=== PATIENT | female | born 1950 | race Caucasian/White ===

== ENCOUNTER 2021-02-10 14:52 | Observation (INO) | payer MEDICARE ==
--- NOTE | 2021-02-10 15:08 | ED ---
General Adult HPI - General Chief complaint: Extremity Injury, Upper Stated complaint: dislocated shoulder Time Seen by Provider: 02/10/21 14:54 Source: patient, family, EMS Mode of arrival: EMS Limitations: no limitations - History of Present Illness Initial comments: Dictation was produced using [employer] dictation software. please excuse any gramma tical, word or spelling errors. This patient was cared for during a federal and state declared state of emergency secondary to Covid 19 Chief Complaint: 70-year-old female with past medical history of COPD, A. fib presents to emergency by for right shoulder dislocation History of Present Illness: 70-year-old female she presents today with right shoulder dislocation. Patient has been having on and off right shoulder pain for the last 10 days. She was evaluated at [facility] where she was diagnosed with right shoulder dislocation. Multiple attempts were made to reduce the right shoulder without any success. Patient has no orthopedic history. He has never seen an orthopedic surgeon past. The ROS documented in this emergency department record has been reviewed and c onfirmed by me. Those systems with pertinent positive or negative responses have been documented in the HPI. All other systems are other negative and/or noncontributory. PHYSICAL EXAM: General Impression: Alert and oriented x3, not in acute distress HEENT: Normocephalic atraumatic, extra-ocular movements intact, pupils equal and reactive to light bilaterally, mucous membranes moist. Cardiovascular: Heart regular rate and rhythm Chest: Able to complete full sentences, no retractions, no tachypnea Right shoulder: Obvious swelling and deformity placed in a sling Abdomen: abdomen soft, non-tender, non-distended, no organomegaly Musculoskeletal: Pulses present and equal in all extremities, no peripheral edema Motor: no focal deficits noted Neurological: CN II-XII grossly intact, no focal motor or sensory deficits noted Skin: Intact with no visualized rashes Psych: Normal affect and mood ED course: 70-year-old female with past medical history of A. fib since the emergency department for shoulder dislocation of the right shoulder. There is concern that patient's shoulders been dislocated for approximately 10 days. Vital signs upon arrival are within acceptable limits. Case is discussed with orthopedic surgery Paula Browning. Given that patient's shoulder has been dislocated for greater than 24 hours and multiple times or any failed at previous emergency department will not become attempt. Orthopedic surgeries willing to admit the patient take patient to the operating room for shoulder reduction tomorrow. - Related Data Allergies Allergy/AdvReac Type Severity Reaction Status Date / Time azithromycin [From Zithromax] Allergy Anaphylaxis Verified 02/10/21 15:06 codeine Allergy Hallucinati Verified 02/10/21 15:06 ons hydromorphone [From Dilaudid] Allergy Confusion Verified 02/10/21 15:06 Review of Systems ROS Statement: Those systems with pertinent positive or pertinent negative responses have been documented in the HPI. ROS Other: All systems not noted in ROS Statement are negative. Past Medical History Past Medical History: Atrial Fibrillation, Asthma, Coronary Artery Disease (CAD), Chest Pain / Angina, COPD, CVA/TIA, Hypertension, Osteoarthritis (OA), Thyroid Disorder Additional Past Medical History / Comment(s): Triple AAA, Diverticulitis History of Any Multi-Drug Resistant Organisms: None Reported Past Surgical History: Heart Catheterization With Stent, Pacemaker Past Psychological History: Anxiety Smoking Status: Former smoker Past Alcohol Use History: None Reported Past Drug Use History: None Reported General Exam Limitations: no limitations Course Vital Signs 02/10/21 14:54 Temperature 97.8 F Pulse Rate 75 Respiratory 18 Rate Blood Pressure 169/85 O2 Sat by Pulse 95 Oximetry Disposition Clinical Impression: Shoulder dislocation Disposition: ADMITTED IP TO THIS HOSP Condition: Fair Referrals: Dejan Carmichael DO [Primary Care Provider] - 1-2 days Decision Time: 16:28
[2021-02-10] MEDS ORDERED: MORPHINE SULFATE 4 MG/ML SYRINGE IV PRN (16:24)
[2021-02-10] MEDS ORDERED: NALOXONE 0.4 MG/ML 1 ML VIAL IV PRN (16:24)
[2021-02-10] MEDS ORDERED: ONDANSETRON 4 MG/2 ML VIAL IVP PRN (16:24)
[2021-02-10] MEDS ORDERED: SODIUM CHLORIDE 0.9% 1,000 ML IV SCH (16:30)
[2021-02-10] MEDS: ACETAMINOPHEN TAB 325 MG TAB PO PRN ×2 (16:42→23:12)
[2021-02-10] MEDS ORDERED: DOCUSATE 100 MG CAP PO PRN (22:52)
[2021-02-10] MEDS ORDERED: FUROSEMIDE 20 MG TAB PO PRN (22:52)
[2021-02-10] MEDS ORDERED: DILTIAZEM CD 180 MG CAP.ER.24H PO SCH (23:00)
[2021-02-10] MEDS: FLECAINIDE 50 MG TAB PO SCH (23:09)
[2021-02-11] MEDS ORDERED: POTASSIUM CHLORIDE ER 20 MEQ TAB.ER PO STA (02:59)
--- NOTE | 2021-02-11 03:01 | P.CONS ---
History of Present Illness - Reason for Consult Consult date: 02/10/21 - History of Present Illness The patient is 70-year-old female with a PMH of A. vielka on Eliquis, coronary artery disease status post 2 stents, status post PPM, systolic CHF, hypertension, hypothyroidism, and hyperlipidemia who was transferred from [facility] for right shoulder dislocation. The patient reports that her shoulder started hurting roughly 10 days ago when she woke up from her sleep. She denied any trauma to the area or any other inciting event. The pain gradually worsened at which time she decided to seek medical care earlier today at [facility]. As per the documentation, multiple attempts were made to reduce the shoulder without success. The patient was subsequently transferred to [facility] emergency room for admission and orthopedic surgery evaluation. Sound physicians were consulted for medical management. At time of interview, the patient reported no pain at rest, but significant pain with movement of the right shoulder joint. She denied numbness, tingling, or w eakness anywhere including RUE. Reports that her exercise tolerance is less than 1 flight of stairs. Denied orthopnea or PND. Denied exertional chest discomfort or palpitations. Denied nausea, vomiting, abdominal pain, diarrhea, fever, chills, cough. Denied hematochezia, melena, or bleeding elsewhere. She underwent an extensive evaluation at [facility] with right shoulder x-ray showing an anterior dislocation of the humeral head with follow-up x-ray showing residual anterior dislocation. EKG revealed an atrial paced rhythm at 60 bpm. Laboratory evaluation revealed a WBC count of 17.8, Hgb 13.5, platelets 414, sodium 126, potassium 3.2, chloride 86, CO2 31, BUN 17, creatinine 0.7, AST 19, ALT 17, total bilirubin 0.9, and calcium 8.6. Review of Systems Pertinent positives and negatives as discussed in HPI, a complete review of systems was performed and all other systems are negative. Past Medical History Past Medical History: Atrial Fibrillation, Asthma, Coronary Artery Disease (CAD), Chest Pain / Angina, COPD, CVA/TIA, Hypertension, Osteoarthritis (OA), Thyroid Disorder Additional Past Medical History / Comment(s): Triple AAA, Diverticulitis History of Any Multi-Drug Resistant Organisms: None Reported Past Surgical History: Heart Catheterization With Stent, Pacemaker Date of Last Stent Placement:: 2005 Type of Cardiac Device: Unknown Device Placement Date:: 2018 Past Psychological History: Anxiety Smoking Status: Former smoker Past Alcohol Use History: None Reported Past Drug Use History: None Reported Medications and Allergies Home Medications Medication Instructions Recorded Confirmed Type Albuterol Inhaler [Ventolin Hfa 2 puff INHALATION RT-DAILY 02/10/21 02/10/21 History Inhaler] Apixaban [Eliquis] 5 mg PO BID 02/10/21 02/10/21 History Bumetanide [BUMEX] 1 mg PO DAILY 02/10/21 02/10/21 History Diltiazem HCl [Diltiazem HCl 24Hr 360 mg PO HS 02/10/21 02/10/21 History ER] Docusate Sodium [Dok] 100 mg PO Q12HR PRN 02/10/21 02/10/21 History Flecainide [Tambocor] 100 mg PO BID 02/10/21 02/10/21 History Furosemide [Lasix] 20 mg PO DAILY PRN 02/10/21 02/10/21 History Levothyroxine Sodium [Synthroid] 75 mcg PO DAILY 02/10/21 02/10/21 History Loratadine [Claritin] 10 mg PO DAILY 02/10/21 02/10/21 History Losartan Potassium [Cozaar] 100 mg PO DAILY 02/10/21 02/10/21 History Magnesium Oxide [Mag-Ox] 400 mg PO BID 02/10/21 02/10/21 History Metoprolol Tartrate [Lopressor] 100 mg PO BID 02/10/21 02/10/21 History Pantoprazole Sodium [Protonix] 40 mg PO DAILY 02/10/21 02/10/21 History Potassium Chloride ER [K-Dur 10] 10 meq PO DAILY 02/10/21 02/10/21 History Pravastatin Sodium [Pravachol] 40 mg PO DAILY 02/10/21 02/10/21 History Allergies Allergy/AdvReac Type Severity Reaction Status Date / Time azithromycin [From Zithromax] Allergy Anaphylaxis Verified 02/10/21 17:34 codeine Allergy Hallucinati Verified 02/10/21 17:34 ons hydromorphone [From Dilaudid] Allergy Confusion Verified 02/10/21 17:34 steroid AdvReac Unknown Uncoded 02/10/21 17:34 Physical Exam Vitals: Vital Signs Temp Pulse Pulse Resp BP BP Pulse Ox 02/10/21 18:33 98.1 F 62 18 114/55 90 L 02/10/21 18:07 97.6 F 62 18 115/64 93 L 02/10/21 17:54 97.6 F 62 18 115/64 93 L 02/10/21 16:44 70 18 145/72 95 02/10/21 14:54 97.8 F 75 18 169/85 95 Intake and Output 02/10/21 02/10/21 02/10/21 06:59 14:59 22:59 Other: Voiding Method Toilet Weight 85.729 kg 85.729 kg General: non toxic, no distress, appears at stated age, obese Derm: no unusual rashes/lesions no unusual ecchymoses, warm, dry Head: atraumatic, normocephalic, symmetric Eyes: EOMI, no lid lag, anicteric sclera, pupils equal round reactive to light ENT: Nose and ears atraumatic, no thrush, no pharyngeal erythema Neck: No thyromegaly, no cervical lymphadenopathy, trachea midline, supple Mouth: no lip lesion, mucus membranes moist Cardiovascular: S1S2 reg, no murmur, positive posterior tibial pulse bilateral, no edema, capillary refill less than 2 seconds, RUE radial pulse palpable Lungs: CTA bilateral, no rhonchi, no rales , no accessory muscle use Abdominal: soft, nontender to palpation, no guarding, no appreciable organomegaly, normal bowel sounds Ext: no gross muscle atrophy, R arm sling, pain elicited w/ movement of R shoulder joint, muscle strength 5 out of 5 in all extremities except RUE due to pain, R distal strength 5/5 including electromatic typist, no contractures Neuro: CN II-XI grossly intact, light touch intact all 4 extremities, finger to nose within normal limits, Psych: Alert, oriented, appropriate affect Assessment and Plan Plan: Pre-op evaluation -Will obtain Cardiology consult for risk stratification in light of patient's poor exercise tolerance and significant cardiac history R shoulder dislocation -Defer management to orthopedic surgery service Hypokalemia -Replace and monitor Hyponatremia -Monitor for now -May be due to acute stressor and pain Chronic conditions: Afib, HTN, hypothyroidism -C/w home meds
[2021-02-11] MEDS: ACETAMINOPHEN TAB 325 MG TAB PO PRN (04:43)
[2021-02-11] MEDS ORDERED: LEVOTHYROXINE 75 MCG TAB PO SCH (06:30)
[2021-02-11] MEDS ORDERED: ALBUTEROL NEBULIZED 2.5 MG/3 ML INHALATION SCH (08:00)
[2021-02-11] MEDS: FLECAINIDE 50 MG TAB PO SCH (08:14)
--- NOTE | 2021-02-11 08:59 | ECHOF ---
Referral Reason:LV function, pre-op clearance MEASUREMENTS -------- HEIGHT: 154.9 cm WEIGHT: 85.7 kg BP: RVIDd: 2.9 cm (< 3.3) IVSd: 1.3 cm (0.6 - 1.1) LVIDd: 3.9 cm (3.9 - 5.3) LVPWd: 1.4 cm (0.6 - 1.1) IVSs: 1.8 cm LVIDs: 2.0 cm LVPWs: 2.1 cm LAESV Index (A-L): 33.05 ml/m Ao Diam: 3.5 cm (2.0 - 3.7) AV Cusp: 1.8 cm (1.5 - 2.6) LA Diam: 3.9 cm (2.7 - 3.8) MV EXCURSION: 21.333 mm (> 18.000) MV EF SLOPE: 140 mm/s (70 - 150) EPSS: 0.6 cm MV E Félix: 1.10 m/s MV DecT: 249 ms MV A Félix: 1.12 m/s MV E/A Ratio: 0.99 AV maxP.02 mmHg AV meanP.77 mmHg RAP: 15.00 mmHg RVSP: 50.63 mmHg FINDINGS -------- Paced rhythm. This was a technically good study. The left ventricular size is normal. There is mild concentric left ventricular hypertrophy. Overa ll left ventricular systolic function is normal with, an EF between 55 - 60 %. Left ventricular claudy limg pressure cannot be estimated due to paced rhythm. The right ventricle is normal in size. LA is midly dilated 29-33ml/m2. The right atrial size is normal. Aortic valve is trileaflet and is mildly thickened. There is mild aortic stenosis present. Peak/m alice gradient across the Aortic Valve is 22.02mmHg / 11.77mmHg. The mitral valve is normal. Mild mitral regurgitation is present. The tricuspid valve appears structurally normal. Mild tricuspid regurgitation present. There is m oderate pulmonary hypertension. The right ventricular systolic pressure, as measured by Doppler, is 50.63mmHg. There is no pulmonic regurgitation present. The aortic root size is normal. The inferior vena cava is mildly dilated. There is no pericardial effusion. CONCLUSIONS -------- 1. Paced rhythm. 2. The left ventricular size is normal. 3. There is mild concentric left ventricular hypertrophy. 4. Overall left ventricular systolic function is normal with, an EF between 55 - 60 %. 5. Left ventricular fillimg pressure cannot be estimated due to paced rhythm. 6. LA is midly dilated 29-33ml/m2. 7. Aortic valve is trileaflet and is mildly thickened. 8. There is mild aortic stenosis present. 9. Peak/mean gradient across the Aortic Valve is 22.02mmHg / 11.77mmHg. 10. Mild mitral regurgitation is present. 11. Mild tricuspid regurgitation present. 12. There is moderate pulmonary hypertension. 13. The right ventricular systolic pressure, as measured by Doppler, is 50.63mmHg. 14. The inferior vena cava is mildly dilated. 15. There is no pericardial effusion. PLUNKET NURSE: Paula Figueroa RDCS
[2021-02-11] MEDS ORDERED: PANTOPRAZOLE 40 MG TABLET PO SCH (09:00)
[2021-02-11] MEDS ORDERED: LOSARTAN 50 MG TAB PO SCH (09:00)
[2021-02-11] MEDS ORDERED: APIXABAN 5 MG TAB PO SCH (09:00)
[2021-02-11] MEDS ORDERED: MAGNESIUM OXIDE 400 MG TAB PO SCH (09:00)
[2021-02-11] MEDS ORDERED: PRAVASTATIN SODIUM 40 MG TAB PO SCH (09:00)
[2021-02-11] MEDS ORDERED: BUMETANIDE 1 MG TAB PO SCH (09:00)
[2021-02-11] MEDS ORDERED: METOPROLOL TARTRATE 50 MG TAB PO SCH (09:00)
[2021-02-11 10:04] LABS: African American GFR (CKD) 85.4 (60.0-200.0); Anion Gap 11.1 mmol/L (4.00-12.00); BUN/Creat Ratio 23.75 Ratio (12.00-20.00); Calcium 8.4 mg/dL (8.7-10.3); Carbon Dioxide 27.9 mmol/L (21.6-31.8); Non-African American GFR(CKD) 73.7 (60.0-200.0); Potassium 3.9 mmol/L (3.5-5.5)
--- NOTE | 2021-02-11 11:23 | P.CRDCN ---
History of Present Illness Consult date: 02/11/21 History of present illness: HISTORY OF PRESENT ILLNESS: This is a 70-year-old female with a past medical history significant for paroxysmal atrial fibrillation, coronary artery disease with previous stent placement 2 (1999 and 2005 per patient), COPD, CVA/TIA, hypertension, osteoarthritis, and previous pacemaker insertion. Patient follows with a Dr. Katelynn Browning in [place], [place]. We have been asked to see the patient in consultation for preop evaluation. Patient was transferred from [facility] yesterday secondary to right shoulder dislocation. Patient examined at the bedside. Patient denies chest pain or pressure. She denies shortness of breath. She reports having a stress test done in [place] within the past year or two. Patient is on 2 L nasal cannula with oxygen saturations greater than 92%. Heart rate is in the 70s. Blood pressure 166/72. She is afebrile. EKG reveals paced rhythm with no signs of acute ischemia Laboratory data: Sodium 133. Potassium 3.9. BUN 18. Creatinine 0.8. Current home cardiac medications include metoprolol tartrate 100 mg twice a day, diltiazem 360 mg at night, Bumex 1 mg daily, pravastatin 40 mg daily, Cozaar 100 mg daily, Lasix 20 mg daily as needed, flecainide 100 mg twice a day, and Eliquis 5 mg twice a day Echocardiogram completed reveals ejection fraction 55-60%, mild aortic stenosis, mild mitral regurgitation, mild tricuspid regurgitation, and moderate pulmonary hypertension REVIEW OF SYSTEMS: At the time of my exam: CONSTITUTIONAL: Denies fever or chills. HEENT: Denies blurred vision, vision changes, or eye pain. Denies hemoptysis CARDIOVASCULAR: Denies chest pain. Denies orthopnea. Denies PND. Denies palpitations RESPIRATORY: Denies shortness of breath. GASTROINTESTINAL: Denies abdominal pain. Denies nausea or vomiting. HEMATOLOGIC: Denies bleeding disorders. GENITOURINARY: Denies any blood in urine. SKIN: Denies pruitis. Denies rash. PHYSICAL EXAM: VITAL SIGNS: Reviewed. GENERAL: Well-developed in no acute distress. HEENT: Head is normocephalic. Pupils are equal, round. Sclerae anicteric. Mucous membranes of the mouth are moist. Neck supple. No JVD or thyromegaly LUNGS: Respirations even and unlabored. Lungs essentially clear to auscultation bilaterally. HEART: Regular rate and rhythm. S1 and S2 heard. ABDOMEN: Soft. Nondistended. Nontender. EXTREMITIES: No clubbing or cyanosis. Peripheral pulses intact. No lower extremity edema. Right arm in sling. NEUROLOGIC: Awake and alert. Oriented x 3. ASSESSMENT: Right shoulder dislocation Paroxysmal atrial fibrillation, on anticoagulation with Eliquis Coronary artery disease with previous stent 2 History of pacemaker insertion COPD Hypertension Hyperlipidemia CVA/TIA Anxiety Former nicotine dependence PLAN: Patient scheduled for closed reduction of right shoulder today with Dr. Holm. Patient has no symptoms of congestive heart failure and no complaints of angina. There are no absolute contraindications to proceed with surgery from a cardiac standpoint Continue home cardiac medications Resume Eliquis when okay with orthopedics Obtain reports from [facility] where patient believes she had her last stress test performed Further recommendations pending patient course Nurse practitioner note has been reviewed by physician. Signing provider agrees with the documented findings, assessment, and plan of care. Past Medical History Past Medical History: Atrial Fibrillation, Asthma, Coronary Artery Disease (CA D), Chest Pain / Angina, COPD, CVA/TIA, Hypertension, Osteoarthritis (OA), Thyroid Disorder Additional Past Medical History / Comment(s): Triple AAA, Diverticulitis History of Any Multi-Drug Resistant Organisms: None Reported Past Surgical History: Heart Catheterization With Stent, Pacemaker Date of Last Stent Placement:: 2005 Type of Cardiac Device: Unknown Device Placement Date:: 2018 Past Psychological History: Anxiety Smoking Status: Former smoker Past Alcohol Use History: None Reported Past Drug Use History: None Reported Medications and Allergies Home Medications Medication Instructions Recorded Confirmed Type Albuterol Inhaler [Ventolin Hfa 2 puff INHALATION RT-DAILY 02/10/21 02/10/21 History Inhaler] Apixaban [Eliquis] 5 mg PO BID 02/10/21 02/10/21 History Bumetanide [BUMEX] 1 mg PO DAILY 02/10/21 02/10/21 History Diltiazem HCl [Diltiazem HCl 24Hr 360 mg PO HS 02/10/21 02/10/21 History ER] Docusate Sodium [Dok] 100 mg PO Q12HR PRN 02/10/21 02/10/21 History Flecainide [Tambocor] 100 mg PO BID 02/10/21 02/10/21 History Furosemide [Lasix] 20 mg PO DAILY PRN 02/10/21 02/10/21 History Levothyroxine Sodium [Synthroid] 75 mcg PO DAILY 02/10/21 02/10/21 History Loratadine [Claritin] 10 mg PO DAILY 02/10/21 02/10/21 History Losartan Potassium [Cozaar] 100 mg PO DAILY 02/10/21 02/10/21 History Magnesium Oxide [Mag-Ox] 400 mg PO BID 02/10/21 02/10/21 History Metoprolol Tartrate [Lopressor] 100 mg PO BID 02/10/21 02/10/21 History Pantoprazole Sodium [Protonix] 40 mg PO DAILY 02/10/21 02/10/21 History Potassium Chloride ER [K-Dur 10] 10 meq PO DAILY 02/10/21 02/10/21 History Pravastatin Sodium [Pravachol] 40 mg PO DAILY 02/10/21 02/10/21 History Allergies Allergy/AdvReac Type Severity Reaction Status Date / Time azithromycin [From Zithromax] Allergy Anaphylaxis Verified 02/10/21 17:34 codeine Allergy Hallucinati Verified 02/10/21 17:34 ons hydromorphone [From Dilaudid] Allergy Confusion Verified 02/10/21 17:34 steroid AdvReac Unknown Uncoded 02/10/21 17:34 Physical Exam Vitals: Vital Signs Temp Pulse Pulse Resp BP BP Pulse Ox 02/11/21 07:53 76 02/11/21 07:38 72 02/11/21 07:20 98.4 F 62 16 166/72 93 L 02/11/21 00:57 97.9 F 58 L 20 132/74 93 L 02/10/21 19:12 98.1 F 61 22 128/72 90 L 02/10/21 18:33 98.1 F 62 18 114/55 90 L 02/10/21 18:07 97.6 F 62 18 115/64 93 L 02/10/21 17:54 97.6 F 62 18 115/64 93 L 02/10/21 16:44 70 18 145/72 95 02/10/21 14:54 97.8 F 75 18 169/85 95 Intake and Output 02/10/21 02/11/21 02/11/21 22:59 06:59 14:59 Other: Voiding Method Toilet Toilet Toilet # Voids 2 2 Weight 85.729 kg Results 02/11/21 05:15 Comprehensive Metabolic Panel 02/11/21 Range/Units 05:15 Sodium 133 L (135-145) mmol/L Potassium 3.9 (3.5-5.5) mmol/L Chloride 94 L (96-109) mmol/L Carbon Dioxide 27.9 (21.6-31.8) mmol/L BUN 19.0 (9.0-27.0) mg/dL Creatinine 0.8 (0.6-1.5) mg/dL Glucose 90 (70-110) mg/dL Calcium 8.4 L (8.7-10.3) mg/dL Current Medications Generic Name Dose Route Start Last Admin Trade Name Freq PRN Reason Stop Dose Admin Acetaminophen 650 mg 02/10/21 16:24 02/11/21 04:43 Acetaminophen Tab 325 Mg Tab PO 650 mg Q6HR PRN Administration Mild Pain or Fever > 100.5 Albuterol Sulfate 2.5 mg 02/11/21 08:00 02/11/21 07:38 Albuterol Nebulized 2.5 Mg/3 Ml INHALATION 2.5 mg RT-DAILY ROSANNE Administration Apixaban 5 mg 02/11/21 09:00 Apixaban 5 Mg Tab PO BID ROSANNE Diltiazem HCl 360 mg 02/10/21 23:00 02/10/21 23:09 Diltiazem Cd 180 Mg Cap.Er.24h PO 360 mg HS ROSANNE Administration Docusate Sodium 100 mg 02/10/21 22:52 Docusate 100 Mg Cap PO Q12HR PRN Constipation Flecainide Acetate 100 mg 02/10/21 23:00 02/11/21 08:14 Flecainide 50 Mg Tab PO 100 mg BID ROSANNE Administration Furosemide 20 mg 02/10/21 22:52 Furosemide 20 Mg Tab PO DAILY PRN Edema Sodium Chloride 1,000 mls @ 20 mls/hr 02/10/21 16:30 02/11/21 00:10 Saline 0.9% IV 20 mls/hr .Q24H ROSANNE Administration Levothyroxine Sodium 75 mcg 02/11/21 06:30 02/11/21 05:49 Levothyroxine 75 Mcg Tab PO 75 mcg DAILY@0630 ROSANNE Administration Losartan Potassium 100 mg 02/11/21 09:00 02/11/21 08:14 Losartan 50 Mg Tab PO 100 mg DAILY ROSANNE Administration Magnesium Oxide 400 mg 02/11/21 09:00 02/11/21 08:15 Magnesium Oxide 400 Mg Tab PO 400 mg BID ROSANNE Administration Metoprolol Tartrate 100 mg 02/11/21 09:00 02/11/21 08:15 Metoprolol Tartrate 50 Mg Tab PO 100 mg BID ROSANNE Administration Morphine Sulfate 4 mg 02/10/21 16:24 Morphine Sulfate 4 Mg/Ml Syringe IV Q4HR PRN Severe Pain Naloxone HCl 0.2 mg 02/10/21 16:24 Naloxone 0.4 Mg/Ml 1 Ml Vial IV Q2M PRN Opioid Reversal Ondansetron HCl 4 mg 02/10/21 16:24 Ondansetron 4 Mg/2 Ml Vial IVP Q8HR PRN Nausea And Vomiting Pantoprazole Sodium 40 mg 02/11/21 09:00 02/11/21 08:14 Pantoprazole 40 Mg Tablet PO 40 mg DAILY ROSANNE Administration Pravastatin Sodium 40 mg 02/11/21 09:00 02/11/21 08:15 Pravastatin Sodium 40 Mg Tab PO 40 mg DAILY ROSANNE Administration Intake and Output 02/10/21 02/11/21 02/11/21 22:59 06:59 14:59 Other: Voiding Method Toilet Toilet Toilet # Voids 2 2 Weight 85.729 kg 02/11/21 05:15
--- NOTE | 2021-02-11 11:28 | P.HPOR ---
History of Present Illness H&P Date: 02/11/21 This is a 70-year-old female who is admitted for right shoulder dislocation. Patient is seen and evaluated at bedside today with Dr. Matthew Holm. Patient states that about 10 days ago she woke up with right shoulder pain. Patient states that since then she has had several episodes of shoulder pain and locking of the right shoulder. Patient states that 2 or 3 days ago she noticed swelling over the right shoulder. Patient denies any injury or previous issues with the right shoulder. Patient states that she went to [facility] emergency room where closed reduction was attempted, but was not successful. Patient was then transferred to [facility] and admitted for further management. Patient states that her pain is well controlled today. Patient denies any fever/chills, numbness, weakness, tingling, abdominal pain, shortness of breath or chest pain. Patient's past medical history significant for atrial fibrillation, asthma, coronary artery disease, pacemaker, chest pain, COPD, CVA/TIA, hypertension, osteoarthritis and thyroid disorder. Review of Systems See HPI. Past Medical History Past Medical History: Atrial Fibrillation, Asthma, Coronary Artery Disease (CAD), Chest Pain / Angina, COPD, CVA/TIA, Hypertension, Osteoarthritis (OA), Thyroid Disorder Additional Past Medical History / Comment(s): Triple AAA, Diverticulitis History of Any Multi-Drug Resistant Organisms: None Reported Past Surgical History: Heart Catheterization With Stent, Pacemaker Date of Last Stent Placement:: 2005 Type of Cardiac Device: Unknown Device Placement Date:: 2018 Past Psychological History: Anxiety Smoking Status: Former smoker Past Alcohol Use History: None Reported Past Drug Use History: None Reported Medications and Allergies Home Medications Medication Instructions Recorded Confirmed Type Albuterol Inhaler [Ventolin Hfa 2 puff INHALATION RT-DAILY 02/10/21 02/10/21 History Inhaler] Apixaban [Eliquis] 5 mg PO BID 02/10/21 02/10/21 History Bumetanide [BUMEX] 1 mg PO DAILY 02/10/21 02/10/21 History Diltiazem HCl [Diltiazem HCl 24Hr 360 mg PO HS 02/10/21 02/10/21 History ER] Docusate Sodium [Dok] 100 mg PO Q12HR PRN 02/10/21 02/10/21 History Flecainide [Tambocor] 100 mg PO BID 02/10/21 02/10/21 History Furosemide [Lasix] 20 mg PO DAILY PRN 02/10/21 02/10/21 History Levothyroxine Sodium [Synthroid] 75 mcg PO DAILY 02/10/21 02/10/21 History Loratadine [Claritin] 10 mg PO DAILY 02/10/21 02/10/21 History Losartan Potassium [Cozaar] 100 mg PO DAILY 02/10/21 02/10/21 History Magnesium Oxide [Mag-Ox] 400 mg PO BID 02/10/21 02/10/21 History Metoprolol Tartrate [Lopressor] 100 mg PO BID 02/10/21 02/10/21 History Pantoprazole Sodium [Protonix] 40 mg PO DAILY 02/10/21 02/10/21 History Potassium Chloride ER [K-Dur 10] 10 meq PO DAILY 02/10/21 02/10/21 History Pravastatin Sodium [Pravachol] 40 mg PO DAILY 02/10/21 02/10/21 History Allergies Allergy/AdvReac Type Severity Reaction Status Date / Time azithromycin [From Zithromax] Allergy Anaphylaxis Verified 02/10/21 17:34 codeine Allergy Hallucinati Verified 02/10/21 17:34 ons hydromorphone [From Dilaudid] Allergy Confusion Verified 02/10/21 17:34 steroid AdvReac Unknown Uncoded 02/10/21 17:34 Physical Examination On exam patient is resting comfortably in bed in no acute distress. Patient is alert and oriented 3. There is swelling over the right shoulder. There is no erythema or ecchymosis. Patient has limited passive and active range of motion of the right upper extremity. Sensation intact. The right upper extremity is warm and well perfused. Neurovascular status and circulatory status are intact. Results Outside x-rays of the right shoulder show anterior dislocation of the right shoulder. - Labs Labs: Abnormal Lab Results - Last 24 Hours (Table) 02/11/21 Range/Units 05:15 Sodium 133 L (135-145) mmol/L Chloride 94 L (96-109) mmol/L BUN/Creatinine Ratio 23.75 H (12.00-20.00) Ratio Calcium 8.4 L (8.7-10.3) mg/dL Result Diagrams: 02/11/21 05:15 Assessment and Plan (1) Dislocation of right shoulder joint Current Visit: Yes Status: Acute Code(s): S43.004A - UNSPECIFIED DISLOCATION OF RIGHT SHOULDER JOINT, INIT ENCNTR SNOMED Code(s): 972466773 (2) Shoulder dislocation Current Visit: Yes Status: Acute Code(s): S43.006A - UNSP DISLOCATION OF UNSPECIFIED SHOULDER JOINT, INIT ENCNTR SNOMED Code(s): 726314912 Plan: 1. Patient is NPO. 2. Continue pain control. 3. Planning for closed reduction of the right shoulder later today with Dr. Matthew Holm pending patient consent. Planning to discharge the patient home today after procedure. Patient is receptive to this plan.
[2021-02-11] MEDS ORDERED: LACTATED RINGERS 1,000 ML IV ONE (12:16)
[2021-02-11] MEDS ORDERED: ONDANSETRON 4 MG/2 ML VIAL IVP ONE (12:22)
--- NOTE | 2021-02-11 13:39 | P.DS ---
Providers Date of admission: 02/10/21 17:19 Expected date of discharge: 02/11/21 Attending physician: Matthew Holm Consults: 02/10/21 16:45 Consult Physician Routine Consulting Provider: Neha Colon Consult Reason/Comments: medical management Do you want consulting provider notified?: Yes 02/11/21 03:00 Consult Physician Urgent Consulting Provider: Tyler Magdaleno Consult Reason/Comments: Pre-op eval Do you want consulting provider notified?: Yes Primary care physician: Dejan Carmichael - Discharge Diagnosis(es) (1) Dislocation of right shoulder joint Current Visit: Yes Status: Acute (2) Shoulder dislocation Current Visit: Yes Status: Acute Hospital Course: This is a 70-year-old female who was transferred from [facility] emergency room for management of anterior right shoulder dislocation. After discussion and co nsideration patient consents to proceed with closed reduction of the right shoulder. Patient is admitted on 02/10/2021 and closed reduction of the right shoulder is performed on 02/11/2021 in the operating room by Dr. Matthew Holm. Labs and vital signs are stable on day of discharge. Patient is in good condition for discharge home. Patient Condition at Discharge: Fair Plan - Discharge Summary New Discharge Prescriptions: New HYDROcodone/APAP 7.5-325MG [[place] 7.5-325] 1 - 2 tab PO Q6H PRN #32 tab PRN Reason: Pain Sennosides [Senokot] 2 tab PO DAILY PRN #60 tablet PRN Reason: Constipation No Action Potassium Chloride ER [K-Dur 10] 10 meq PO DAILY Pantoprazole Sodium [Protonix] 40 mg PO DAILY Magnesium Oxide [Mag-Ox] 400 mg PO BID Losartan Potassium [Cozaar] 100 mg PO DAILY Bumetanide [BUMEX] 1 mg PO DAILY Levothyroxine Sodium [Synthroid] 75 mcg PO DAILY Furosemide [Lasix] 20 mg PO DAILY PRN PRN Reason: Edema Flecainide [Tambocor] 100 mg PO BID Apixaban [Eliquis] 5 mg PO BID Diltiazem HCl [Diltiazem HCl 24Hr ER] 360 mg PO HS Albuterol Inhaler [Ventolin Hfa Inhaler] 2 puff INHALATION RT-DAILY Pravastatin Sodium [Pravachol] 40 mg PO DAILY Metoprolol Tartrate [Lopressor] 100 mg PO BID Docusate Sodium [Dok] 100 mg PO Q12HR PRN PRN Reason: Constipation Loratadine [Claritin] 10 mg PO DAILY Discharge Medication List Albuterol Inhaler [Ventolin Hfa Inhaler] 2 puff INHALATION RT-DAILY 02/10/21 [History] Apixaban [Eliquis] 5 mg PO BID 02/10/21 [History] Bumetanide [BUMEX] 1 mg PO DAILY 02/10/21 [History] Diltiazem HCl [Diltiazem HCl 24Hr ER] 360 mg PO HS 02/10/21 [History] Docusate Sodium [Dok] 100 mg PO Q12HR PRN 02/10/21 [History] Flecainide [Tambocor] 100 mg PO BID 02/10/21 [History] Furosemide [Lasix] 20 mg PO DAILY PRN 02/10/21 [History] Levothyroxine Sodium [Synthroid] 75 mcg PO DAILY 02/10/21 [History] Loratadine [Claritin] 10 mg PO DAILY 02/10/21 [History] Losartan Potassium [Cozaar] 100 mg PO DAILY 02/10/21 [History] Magnesium Oxide [Mag-Ox] 400 mg PO BID 02/10/21 [History] Metoprolol Tartrate [Lopressor] 100 mg PO BID 02/10/21 [History] Pantoprazole Sodium [Protonix] 40 mg PO DAILY 02/10/21 [History] Potassium Chloride ER [K-Dur 10] 10 meq PO DAILY 02/10/21 [History] Pravastatin Sodium [Pravachol] 40 mg PO DAILY 02/10/21 [History] HYDROcodone/APAP 7.5-325MG [[place] 7.5-325] 1 - 2 tab PO Q6H PRN #32 tab 02/11/21 [Rx] Sennosides [Senokot] 2 tab PO DAILY PRN #60 tablet 02/11/21 [Rx] Follow up Appointment(s)/Referral(s): Dejan Carmichael DO [Primary Care Provider] - 1-2 days Matthew Holm DO [Doctor of Osteopathic Medicine] - 1 Week Activity/Diet/Wound Care/Special Instructions: Maintain sling to right upper extremity. Please take medications as prescribed. Rest and ice the right shoulder. Nonweightbearing to the right upper extremity. Please follow-up with [facility] and call with any questions or concerns, . Discharge Disposition: HOME SELF-CARE
[2021-02-11] MEDS ORDERED: HYDROmorphone 0.5 MG/0.5 ML SYRINGE IVP PRN ×2 (13:41)
[2021-02-11] MEDS ORDERED: HYDROmorphone 0.2 MG/1 ML SYRINGE IVP PRN (13:41)
[2021-02-11] MEDS ORDERED: HYDROcodone/APAP 7.5-325MG 1 EACH TAB PO PRN ×2 (13:42)
[2021-02-11] MEDS ORDERED: PROPOFOL 10 MG/ML 20 ML VIAL IV ONE (13:53)
[2021-02-11] MEDS ORDERED: LIDOCAINE 1% INJ 10MG/ML (20 ML MDV) ONE (13:53)
[2021-02-11] MEDS ORDERED: fentaNYL (PF) 50 MCG/ML 2 ML AMP ONE (13:53)
[2021-02-11] MEDS ORDERED: MIDAZOLAM 2 MG/2 ML VIAL ONE (13:53)
--- NOTE | 2021-02-11 14:21 | P.OP ---
Date of Procedure: 02/11/21 Preoperative Diagnosis: Anterior dislocation right shoulder Postoperative Diagnosis: Anterior dislocation right shoulder Procedure(s) Performed: 1. Examination under anesthesia right shoulder 2. Close reduction right shoulder dislocation Anesthesia: MAC Surgeon: Matthew Holm Automatic Seamer #1: Kate Liu Pathology: none sent Condition: stable Disposition: PACU Indications for Procedure: This is a 70-year-old female that presented to the ER as a transfer with a dislocated right shoulder. Multiple attempts were made to reduce the shoulder at [facility], but were unsuccessful. She has a vague history of pain in the shoulder but no alem traumatic event. After discussing the surgical nonsurgical treatment options with her at length recommended a close reduction under anesthesia of her right shoulder. Informed consent was obtained. Operative Findings: The operative findings are consistent with an anterior dislocation of the right shoulder. Examination under anesthesia right shoulder showed it to be quite unstable during range of motion Description of Procedure: The patient was seen in the preoperative area, consent was reviewed, and the operative site was marked with a skin marker. Patient was then brought to the operating room and given a general anesthetic by the anesthesia department. A universal timeout was then performed which confirmed the patient's name, surgical site, ALLERGIES, and consent. Next, a gentle reduction of the shoulder was performed with a palpable clunk. Fluoroscopic x-rays confirmed reduction of the shoulder. Shoulder was then examined under anesthesia and found be quite stable especially with elevation of the shoulder and external rotation. Reduction of the shoulder was reconfirmed and the patient was placed in an arm sling. Patient will follow-up in 1 week in the office. The cable splicer assistant HERMILO Lopez was required due the complexity of the reduction and need for an cable splicer assistant.
[2021-02-11 14:27] VITALS: TEMP 97
[2021-02-11] MEDS ORDERED: MORPHINE SULFATE 4 MG/ML SYRINGE IVP ONE (14:47)
--- NOTE | 2021-02-11 14:48 | FL ---
EXAMINATION TYPE: FL guidance operating room DATE OF EXAM: 02/11/2021 HISTORY: Fluoroscopy time 26 seconds of fluoroscopy provided. IMPRESSION: 1. Fluoroscopy time.
[2021-02-11 15:49] VITALS: BP 150/62; PULSE 61; RESP 18
== END 2021-02-11 17:18 | disposition home or self-care (01) ==
LOC: EC 14:52 → 6NMEDSUR 17:19
PROVIDERS: ADMIT Orthopaedic Surgery; ATTEND Orthopaedic Surgery
DX: S43.014A Anterior dislocation of right humerus, initial encounter (principal); E87.6 Hypokalemia; E87.1 Hypo-osmolality and hyponatremia; I48.0 Paroxysmal atrial fibrillation; J44.9 Chronic obstructive pulmonary disease, unspecified; I11.0 Hypertensive heart disease with heart failure; I50.20 Unspecified systolic (congestive) heart failure; I71.4 Abdominal aortic aneurysm, without rupture; K57.90 Diverticulosis of intestine, part unspecified, without perforation or abscess without bleeding; I08.3 Combined rheumatic disorders of mitral, aortic and tricuspid valves; I25.10 Atherosclerotic heart disease of native coronary artery without angina pectoris; I27.20 Pulmonary hypertension, unspecified; M19.90 Unspecified osteoarthritis, unspecified site; F41.9 Anxiety disorder, unspecified; E03.9 Hypothyroidism, unspecified; E78.5 Hyperlipidemia, unspecified; Z20.822 Contact with and (suspected) exposure to COVID-19; X58.XXXA Exposure to other specified factors, initial encounter; Z79.01 Long term (current) use of anticoagulants; Z79.890 Hormone replacement therapy; Z79.899 Other long term (current) drug therapy; Z88.1 Allergy status to other antibiotic agents; Z88.5 Allergy status to narcotic agent; Z88.8 Allergy status to other drugs, medicaments and biological substances; Z87.891 Personal history of nicotine dependence; Z86.73 Personal history of transient ischemic attack (TIA), and cerebral infarction without residual deficits; Z95.5 Presence of coronary angioplasty implant and graft; Z95.0 Presence of cardiac pacemaker
CPT/HCPCS: 23655; 93005; 99285; 94640; 93306; 80048; 87636; 73020; G0378 ×2; J2250; J2270; J2405; J2001; J3010; J2704